=== PATIENT | male | born 1970 | race Caucasian/White ===

== ENCOUNTER 2016-10-23 07:24 | Day surgery (SDC) | payer OTHER ==
--- NOTE | 2016-10-22 08:38 | HISTORY AND PHYSICAL ---
ADMITTED: 10/23/2016 HISTORY OF PRESENT ILLNESS: The patient is a 46-year-old male with a chief complaint of a chronic painful unstable left ankle. He reports that the ankle continues to roll , it has given out several times. Reports that the ankle swells and is painful to walk and he is an avid physical enthusiast and would like to have the ankle feel a little bit more stable. MEDICAL/SURGICAL HISTORY: Past medical history includes a history of hypertension, elevated cholesterol, hepatitis A. Past surgical history: Back in 2007, he lost 3 toes on his right foot secondary to an industrial lawnmower accident. PRIMARY CARE PROVIDER: Bryna Key MD MEDICATIONS: 1. Lisinopril 25 mg 1 by mouth daily. 2. Hydrocodone 5. 3. Acetaminophen 325 one to two tablets q.6 hours as needed for pain. 4. Naproxen 500 mg 1 by mouth b.i.d. 5. Revatio 20 mg tablet 1 to 5 tablets daily as needed. ALLERGIES: 1. REPORTS AN ALLERGY TO SHRIMP. SOCIAL HISTORY: He is , self-employed in the construction business. Does not smoke, drinks socially. FAMILY HISTORY: Positive for cancer, heart disease, hypertension, strokes. REVIEW OF SYSTEMS: Ten-point review of systems noncontributory to chief complaint. PHYSICAL EXAMINATION: GENERAL: The patient is oriented x3. HEENT: Head and neck PERRLA. Normocephalic. HEART: Regular rate and rhythm. Regular S1, S2. No murmurs or gallops. LUNGS: Clear to auscultation. No wheezing, rhonchi, or rales. ABDOMEN: Soft and nondistended, nonpalpable masses. Normal tones. LOWER EXTREMITY: Vascular: Dorsalis pedis and posterior tibial pulses 2/4, subpapillary venous plexus capillary refill within normal limits. NEUROLOGIC: Deep tendon reflexes, epicritic sensations are intact. Left foot and ankle presents with tenderness along the course of the anterior talar and calcaneal fibular ligaments respectively. Positive anterior drawer sign with 4-6 mm of anterior displacement. Crepitus within the ankle joint, particularly with plantar flexion and inversion, as well as with dorsiflexion and eversion. LAB/IMAGING: Ultrasound revealed some hypoechoic areas along the course of the anterior talofibular ligament. IMPRESSION: 1. Chronic ankle instability. PLAN: The patient is consented for an outpatient procedure of the left ankle consistent of an ankle arthroscopy with debridement and a lateral ankle stabilization with Arthrex internal brace. He is well aware of the planned procedure and convalescence period. There is no contraindication to surgery at this time. Surgery is scheduled at [facility] on 10/23/2016.
[~2016-10-23] VITALS: Ht 172.7 cm; Wt 108.9 kg
[~2016-10-23 07:24] MED LIST: LISINOPRIL10 MG PO
--- NOTE | 2016-10-23 08:10 | NUR ---
PRE OP INSTRUCTIONS GIVEN AND SAFETY ISSUES DISCUSSED PT AND SPOUSE HAD QUESTIONS ANSWERED PT CONFIRMED PROCEDURE PT VERIFIED SIGNATURE PT MARKED SITE PT WASHED FOOT WITH CHLORHEXIDINE WIPES
[2016-10-23] MEDS ORDERED: PERCOCET1 TA4 PO (11:19)
[2016-10-23] MEDS ORDERED: ZOFRAN4 MG PO (11:19)
--- NOTE | 2016-10-23 11:20 | Provider's Discharge Care Plan ---
Problem, Goal, Plan Problem List 1. Sprain of other ligament of left ankle, initial encounter Goals: Improve function Instructions: Follow up as directed
--- NOTE | 2016-10-23 11:20 | Provider's Discharge Care Plan ---
Problem, Goal, Plan Problem List 1. Sprain of other ligament of left ankle, initial encounter Goals: Improve function Instructions: Follow up as directed
--- NOTE | 2016-10-23 11:33 | NUR ---
rec'd from OR; SPONT RESP. HOB ELEVATED 40 DEGREES.LLE ELEVATE AND ICED PER ORDERS.
--- NOTE | 2016-10-23 11:53 | NUR ---
DR. TAPIA HERE TO TALK TO PT RE FINDINGS AND AFTER CARE RE WEARING BOOT WHEN UP AND AROUND BUT ALSO WALKING WITHOUT THE BOOT A BIT.
--- NOTE | 2016-10-23 12:33 | NUR ---
PT RETURNED FROM PACU LEFT FOOT ELEVATED ICE BEHIND KNEE CAP REFILL LESS THAN 3 SEC DRESSING DRY AND INTACT
--- NOTE | 2016-10-23 12:52 | OPERATIVE REPORT ---
DATE OF SURGERY: 10/23/2016 SURGEON: Channing Van DPM PREOPERATIVE DIAGNOSES: 1. Chronic ankle instability, left ankle POSTOPERATIVE DIAGNOSES: 1. Hemorrhagic synovitis and a slightly attenuated anterior talofibular ligament. PROCEDURE PERFORMED: 1. ANESTHESIA: General. HEMOSTASIS: Achieved by a mid thigh tourniquet inflated to 300 mmHg pressure. TOURNIQUET TIME: Total tourniquet time 74 minutes. MATERIALS: Used 3-0 and 4-0 Polysorb, 4-0 Surgipro and Arthrex internal brace kit and 1 additional SwiveLock 4.75. INJECTABLES: Injected 20 mL of 0.5% bupivacaine plain. COMPLICATIONS: None. CONDITION: The patient tolerated anesthesia and procedure well. INDICATIONS: The patient is a 46-year-old male who has chronic ankle instability. States he rolls his ankles frequently. States he would like to have the procedure carried out that would stabilize his ankle and to allow him to participate in all of his desired physical activities. There are no contraindications to surgery at this time. SURGICAL TECHNIQUE: The patient was brought to the operating room and placed on the table in the supine position. General anesthetic was then administered and a pneumatic tourniquet was then placed above the left knee at mid thigh level. The left lower extremity was prepped and draped in the normal sterile fashion. An intraoperative pause was carried out for positive identification, proper limb, and consent form verified and confirmed. In addition, the 2 grams of cefazolin had been administered, completed and delivered. The [place] bandage was then utilized to exsanguinate the limb, the tourniquet was then inflated. Attention was directed to procedure #1. Procedure #1, Ankle arthroscopy with debridement: At this time, the leg was placed in a leg rausch, and an Arthrex ankle distractor was placed. An 18 gauge needle was used on the anterolateral gutter into the joint. A corresponding vertical incision was made with an 11 blade dissected via portal dissection. The camera was then inserted. Upon entry to the lateral gutter, there was noted significant hemorrhagic synovitis that was encountered. The joint was further distracted. An 18-gauge needle was then made on the anteromedial aspect of the medial gutter just lateral to the tibialis anterior tendon. An 18-gauge was used to puncture and then seen in the joint. A corresponding vertical incision was made with an #11 blade and dissected via portal dissection. A small joint shaver was then placed into the joint. The hemorrhagic synovium was excised and removed. Approximately 3000 liters of lactated Ringer's were run through the joint. The posterior ligament structures seemed to be intact. There seemed to be some remnants of the anterior portions of the anterior talofibular ligament to be partially torn. They were shaved down to a nice firm adherence. There were no osteochondral lesions noted, articulating surfaces, both on the fibula and tibia, were in good condition with no lesions noted. The shaver and camera were then transpositioned to allow access to the lateral hemorrhagic synovium. The camera and shaver were removed. The portals were then reapproximated with 4-0 Polysorb. Attention was directed to procedure #2. Procedure#2, Lateral ankle stabilization with an arthrex internal brace: At this time, a vertical incision was made on the anterolateral aspect of the distal fibula. It was deepened by meticulous dissection. Superficial vessels were ligated as they were encountered, and a moistened sponge was then utilized as blunt dissection down to the periosteal layer of the fibula. A [place] elevator was used to incise it and this was reflected both medially and posteriorly. A guidewire was then driven obliquely about 45-degree angle towards the lateral gutter. A cannulated 2.7 drill was then utilized. However, encountering difficulty, we removed it and removed the K-wire. The K-wire had a slight bend to it. It was replaced with a new K-wire. Drilled was further carried out. It was tapped accordingly, and then the 3.4 SwiveLock was inserted with FiberWire exiting. Dissection was carried across anteromedially following the course of the anterior talofibular ligament, which was slightly attenuated. A guidewire was then driven obliquely at a 45-degree angle towards posterior medial malleolus again verified under fluoroscopy for proper placement. It was then over-drilled with a 2.7 drill and then over- drilled with a 3.4 drill and tapped with a 4.75 tap. FiberTape was inserted into a SwiveLock and then inserted into the hole. While inserting the SwiveLock and tape, the eyelet of the loaded tape exited the fibula. It was then removed. The SwiveLock in the talus was further inserted without any complications. An additional anterior K-wire was then driven in the fibula, drilled with a 2.7 drill, over-drilled with 3.4 and an additional 4.7 SwiveLock was then utilized with the FiberTape being loaded and then inserted under tension with the foot held in neutral position and slightly dorsiflexed. There were no complications upon insertion. The area was flushed. The capsule and periosteum were reapproximated with 3-0 Polysorb, subcutaneous with 4-0 and skin edges reapproximated in running fashion with 4-0 Surgipro. The area was locally anesthetized with the aforementioned local anesthetic. A light compressive dressing was applied. The tourniquet was released with good reactive hyperemia and good digital perfusion. The patient tolerated the procedure well and left the operating room with vital signs stable. While in recovery, postoperative fracture boot dispensed, ambulation to tolerance. Prognosis guarded. Discharged home in stable condition.
--- NOTE | 2016-10-23 13:22 | NUR ---
PT STATED FOOT MORE UNCOMFORTABLE PERCOCET GIVEN AFTER SOME FOOD
[2016-10-23 13:49] VITALS: BP 132/85
--- NOTE | 2016-10-23 13:57 | NUR ---
PT STATED PAIN LESS. ASKING TO GO HOME PT UP IN ROOM PT CHANEL WELL PT ASKING TO GO HOME. REVEWED DISCHARGE INSTRUCTIONS VERBAL AND WRITTEN PT AND SPOUSE EXPRESSED UNDERSTANDING PT DISCHARGED PER WC ACCOMPANIED BY SPOUSE
== END 2016-10-23 14:02 | disposition home or self-care (01) ==
LOC: SCU SRH 07:24 → SDC SRH 07:24 → SCU SRH 07:27 → SDC SRH 09:00 → OR SRH 09:30 → SDC SRH 14:02
PROVIDERS: Podiatrist
PROC: 0SBG4ZZ Excision of Left Ankle Joint, Percutaneous Endoscopic Approach (ICD-10-PCS; principal; 2016-10-23 09:00)
PROC: 0MQR0ZZ Repair Left Ankle Bursa and Ligament, Open Approach (ICD-10-PCS; principal; 2016-10-23 09:00)
DX: M65.872 Other synovitis and tenosynovitis, left ankle and foot (principal); S93.492A Sprain of other ligament of left ankle, initial encounter; M24.272 Disorder of ligament, left ankle; I10 Essential (primary) hypertension
CPT/HCPCS: 29229; 29240; 50002; 60001; 70002; 80102; 80144; 80212; 80360; 80865; 83419; 83612; 83860; 84038; 84522; 90074; 90100; 95059